=== PATIENT | female | born 1935 | race Two or more races ===

== ENCOUNTER 2019-04-25 14:50 | Emergency (ER) | payer MEDICARE, MEDICAID ==
[~2019-04-25] VITALS: Ht 162.6 cm; Wt 80.7 kg
[2019-04-25 14:56] VITALS: BP 120/58
== END 2019-04-25 15:38 | disposition left against medical advice (07) ==
LOC: ER 15:00
DX: Z53.21 Procedure and treatment not carried out due to patient leaving prior to being seen by health care provider (principal); R11.2 Nausea with vomiting, unspecified; I10 Essential (primary) hypertension; E11.9 Type 2 diabetes mellitus without complications

== ENCOUNTER 2020-09-30 09:44 | Outpatient (CLI) | payer MEDICARE, OTHER | END 2020-09-30 23:59 | disposition home or self-care (01) | LOC: CT 09:44 | PROVIDERS: ATTEND Internal Medicine Interventional Cardiology | DX: J98.11 Atelectasis (principal); I51.7 Cardiomegaly; M81.0 Age-related osteoporosis without current pathological fracture; I70.0 Atherosclerosis of aorta | CPT/HCPCS: 71250-TC ==